=== PATIENT | male | born 1965 | race Caucasian/White ===

== ENCOUNTER 2019-08-26 14:52 | Emergency (ER) | payer OTHER ==
[~2019-08-26] VITALS: Ht 188 cm; Wt 117.9 kg
[2019-08-26 19:31] VITALS: BP 145/90
== END 2019-08-26 19:44 | disposition home or self-care (01) ==
LOC: ER 14:52
DX: S92.411A Displaced fracture of proximal phalanx of right great toe, initial encounter for closed fracture (principal); S00.91XA Abrasion of unspecified part of head, initial encounter; Z88.0 Allergy status to penicillin; W20.8XXA Other cause of strike by thrown, projected or falling object, initial encounter; Y93.89 Activity, other specified; Y99.0 Civilian activity done for income or pay; Y92.89 Other specified places as the place of occurrence of the external cause
CPT/HCPCS: 73630; 99283; L3260

== ENCOUNTER → 2023-07-29 | Outpatient (CLI) | payer OTHER ==
[2023-07-29 10:09] LABS: Basophils # (auto) 0.1 10 ^3/uL (0-0.2); Basophils % (auto) 1.2 % (0.0-2.0); Eosinophils # (auto) 0.2 10 ^3/uL (0-0.8); Eosinophils % (auto) 3.1 % (0.0-7.0); Hematocrit 47.3 % (41.0-53.0); Hemoglobin 15.9 g/dL (13.5-17.5); Lymphocytes # (auto) 1.2 10 ^3/uL (0.4-5.4); Lymphocytes % (auto) 20.5 % (10.0-50.0); Mean Corpuscular Hemoglobin 28.5 pg (28.0-32.0); Mean Corpuscular Hgb Conc. 33.6 g/dL (32.0-36.0); Mean Corpuscular Volume 84.9 fL (80.0-100.0); Monocytes # (auto) 0.3 10 ^3/uL (0-1.3); Monocytes % (auto) 5.5 % (0.0-12.0); Neutrophils % (auto) 69.7 % (37.0-80.0); Nucleated Red Blood Cells % 0.2 %; Red Blood Cells 5.58 10^6/uL (4.5-5.90); Red Cell Distribution Width 13.8 % (11.8-14.3); White Blood Cell 5.7 10^3/uL (4.4-10.8)
[2023-07-29 11:00] LABS: Urine Bacteria NONE SEEN /hpf (None Seen); Urine Blood Negative /uL (Negative); Urine Clarity HAZY (Clear); Urine Color Yellow (Yellow); Urine Mucus FEW (None Seen); Urine Protein, UAD 1+ (Negative); Urine Specific Gravity 1.031 (1.001-1.035); Urine WBC 4 /hpf (0 - 3); Urine pH 6.5 (5.0-8.0)
[2023-07-29 11:19] LABS: Alanine Aminotransferase 41 U/L (7-40); Albumin 4.5 g/dL (3.2-4.8); Alkaline Phosphatase 73 U/L (46-116); Anion Gap 8.1 (5-15); Aspartate Aminotransferase 20 U/L (13-40); Bilirubin, Total 0.8 mg/dL (0.2-1.0); Blood Urea Nitrogen 10 mg/dL (9-23); Calcium 9.2 mg/dL (8.5-10.1); Carbon Dioxide 27.9 mmol/L (20-30); Chloride 104 mmol/L (98-107); Cholesterol 143 mg/dL (< 200); Glucose 139 mg/dL (74-106); HDL Cholesterol 44 mg/dL (40-59); LDL Cholesterol 97 mg/dL (< 100); Potassium 4.1 mmol/L (3.5-5.1); Sodium 140 mmol/L (136-145); Total Protein 7.2 g/dL (5.7-8.2); Triglycerides 87 mg/dL (< 150)
== END | disposition home or self-care (01) ==
LOC: LAB 09:46
PROVIDERS: ATTEND Nurse Practitioner
DX: E11.9 Type 2 diabetes mellitus without complications (principal); I10 Essential (primary) hypertension; E78.5 Hyperlipidemia, unspecified
CPT/HCPCS: 36415; 80053; 80061; 81001; 82043; 83036; 84153; 84443; 85025

== ENCOUNTER 2024-07-30 09:00 | Inpatient (IN) | payer OTHER ==
[~2024-07-30] VITALS: Ht 188 cm; Wt 107.2 kg
[~2024-07-30 09:00] MED LIST: ATOR-507 PO; CARB25TA79 PO; FLUO-125 PO; INSU100I47 SC; LOSA-534 PO; METF-372 PO
[2024-07-30 09:52] LABS: Basophils # (auto) 0 10 ^3/uL (0-0.2); Basophils % (auto) 0.4 % (0.0-2.0); Eosinophils # (auto) 0 10 ^3/uL (0-0.8); Eosinophils % (auto) 0.1 % (0.0-7.0); Hematocrit 47.1 % (41.0-53.0); Hemoglobin 16.2 g/dL (13.5-17.5); Lymphocytes # (auto) 0.7 10 ^3/uL (0.4-5.4); Lymphocytes % (auto) 7.8 % (10.0-50.0); Mean Corpuscular Hemoglobin 29.4 pg (28.0-32.0); Mean Corpuscular Hgb Conc. 34.5 g/dL (32.0-36.0); Mean Corpuscular Volume 85.1 fL (80.0-100.0); Monocytes % (auto) 10.6 % (0.0-12.0); Neutrophils # (auto) 7.7 10 ^3/uL (1.6-8.6); Neutrophils % (auto) 81.1 % (37.0-80.0); Nucleated Red Blood Cells % 0.1 %; Platelet Count (auto) 115 10^3/uL (140-450); Red Blood Cells 5.53 10^6/uL (4.5-5.90); Red Cell Distribution Width 13.7 % (11.8-14.3); White Blood Cell 9.5 10^3/uL (4.4-10.8)
[2024-07-30 10:12] LABS: Alanine Aminotransferase 36 U/L (7-40); Albumin 4.6 g/dL (3.2-4.8); Alkaline Phosphatase 80 U/L (46-116); Anion Gap 8 (5-15); Aspartate Aminotransferase 33 U/L (13-40); BUN/Creatinine Ratio 13.2 (10.0-20.0); Blood Urea Nitrogen 14 mg/dL (9-23); Calcium 9.4 mg/dL (8.7-10.4); Carbon Dioxide 25 mmol/L (20-30); Chloride 100 mmol/L (98-107); Glucose 245 mg/dL (74-106); Potassium 3.8 mmol/L (3.5-5.1); Sodium 133 mmol/L (136-145)
[2024-07-30 10:13] LABS: Bilirubin, Total 1.3 mg/dL (0.2-1.0); Total Protein 7.7 g/dL (5.7-8.2)
[2024-07-30] MEDS: ASPirin 81 mg TAB PO ONE (11:12)
[2024-07-30] MEDS ORDERED: ACETAMINOPHEN 325 MG TAB PO PRN (12:00)
[2024-07-30] MEDS: ACCU-CHEK COMFORT CURVE STRIP VI SCH (12:00)
[2024-07-30] MEDS ORDERED: ONDANSETRON HCL 4 MG/2 ML VIAL IV PRN (12:00)
[2024-07-30] MEDS ORDERED: NITROGLYCERIN 0.4 MG SL TAB SL PRN ×2 (12:00)
[2024-07-30] MEDS ORDERED: DEXTROSE (50%) 50ML SYRG IV PRN (12:00)
[2024-07-30 12:26] LABS: INR 1.29 (0.9-1.15); Prothrombin Time 13.4 sec (9.3-11.8)
[2024-07-30 13:13] VITALS: PULSE 97; RESP 20; O2SAT 97
[2024-07-30] MEDS: cefTRIAXone 1GM/50ML D5W 50 ML IV ONE (13:55)
[2024-07-30] MEDS: InsuLIN REG 1unit/0.01ml Soln (100units/ml) SC SCH (14:02)
[2024-07-30] MEDS ORDERED: hydrALAZINE HCL 20 MG/ML VL IV PRN (14:45)
[2024-07-30] MEDS ORDERED: HYDR25TA4 PO (16:00)
[2024-07-30] MEDS: MAGNESIUM SULFATE 1GM/100ML 100 ML IV SCH (17:13)
[2024-07-30] MEDS ORDERED: MORPHINE SULFATE INJ 2 MG/ml SYRG IV PRN (18:15)
[2024-07-30 18:55] VITALS: BP 135/83; PULSE 88; RESP 21; TEMP 98.6; O2SAT 95
[2024-07-30] MEDS: HYDROcodone-ACET 5/325MG TAB PO PRN (18:57)
[2024-07-30 19:07] VITALS: O2SAT 97
[2024-07-30 20:00] VITALS: PULSE 101; PULSE 80; PULSE 93; RESP 22; O2SAT 94
[2024-07-30 21:00] VITALS: BP 141/88; PULSE 93; RESP 22; TEMP 98.5; O2SAT 94
[2024-07-30] MEDS: ATORVASTATIN 20 MG TAB PO SCH (21:41)
[2024-07-30] MEDS ORDERED: METOPROLOL TARTRATE 25 MG TAB PO SCH (22:00)
[2024-07-30] MEDS ORDERED: OMEP20TA PO (23:04)
[2024-07-30] MEDS ORDERED: ASPI1TAB20 PO (23:06)
[2024-07-30] MEDS ORDERED: FLUO20TA42 PO (23:07)
[2024-07-31 01:00] VITALS: BP 132/85; PULSE 86; RESP 20; TEMP 98.3; O2SAT 94
[2024-07-31 05:00] VITALS: BP 116/85; PULSE 76; RESP 18; TEMP 98; O2SAT 96
[2024-07-31 05:04] LABS: Basophils # (auto) 0 10 ^3/uL (0-0.2); Basophils % (auto) 0.7 % (0.0-2.0); Eosinophils # (auto) 0.1 10 ^3/uL (0-0.8); Eosinophils % (auto) 2.2 % (0.0-7.0); Hematocrit 42.8 % (41.0-53.0); Hemoglobin 15.1 g/dL (13.5-17.5); Lymphocytes # (auto) 1.2 10 ^3/uL (0.4-5.4); Lymphocytes % (auto) 18.6 % (10.0-50.0); Mean Corpuscular Hemoglobin 29.9 pg (28.0-32.0); Mean Corpuscular Hgb Conc. 35.2 g/dL (32.0-36.0); Mean Corpuscular Volume 84.9 fL (80.0-100.0); Monocytes # (auto) 0.9 10 ^3/uL (0-1.3); Monocytes % (auto) 14.1 % (0.0-12.0); Neutrophils # (auto) 4.2 10 ^3/uL (1.6-8.6); Neutrophils % (auto) 64.4 % (37.0-80.0); Nucleated Red Blood Cells % 0.1 %; Platelet Count (auto) 100 10^3/uL (140-450); Red Blood Cells 5.05 10^6/uL (4.5-5.90); Red Cell Distribution Width 13.7 % (11.8-14.3); White Blood Cell 6.5 10^3/uL (4.4-10.8)
[2024-07-31 05:51] LABS: Alanine Aminotransferase 34 U/L (7-40); Albumin 4.1 g/dL (3.2-4.8); Alkaline Phosphatase 71 U/L (46-116); Anion Gap 6 (5-15); Aspartate Aminotransferase 22 U/L (13-40); BUN/Creatinine Ratio 14.4 (10.0-20.0); Bilirubin, Total 0.9 mg/dL (0.2-1.0); Blood Urea Nitrogen 14 mg/dL (9-23); Calcium 9.2 mg/dL (8.7-10.4); Carbon Dioxide 26 mmol/L (20-30); Chloride 102 mmol/L (98-107); Cholesterol 133 mg/dL (< 200); Glucose 242 mg/dL (74-106); HDL Cholesterol 40 mg/dL (40-59); LDL Cholesterol 76 mg/dL (< 100); Potassium 3.8 mmol/L (3.5-5.1); Sodium 134 mmol/L (136-145); Total Protein 6.9 g/dL (5.7-8.2); Triglycerides 118 mg/dL (< 150)
[2024-07-31 08:03] VITALS: PULSE 97; RESP 20; O2SAT 94
[2024-07-31] MEDS: cefTRIAXone 1GM/50ML D5W 50 ML IV SCH (08:42)
[2024-07-31] MEDS: DOCUSATE SOD 100 MG CAP PO SCH (08:42)
[2024-07-31] MEDS: ASPirin 81 mg TAB PO SCH (08:43)
[2024-07-31] MEDS: LOSARTAN POTASSIUM 25 MG TAB PO SCH (08:44)
[2024-07-31 09:00] VITALS: BP 140/91; PULSE 68; RESP 16; TEMP 98.4; O2SAT 93
[2024-07-31] MEDS: hydroCHLOROthiazide 25 MG TAB PO SCH (10:00)
[2024-07-31] MEDS ORDERED: VANCOMYCIN PER PHARMACY 0 MG IV SCH (11:00)
[2024-07-31] MEDS: VANCOMYCIN 1GM/200ML 200 ML IV SCH (11:52)
[2024-07-31 12:04] VITALS: BP 135/91; PULSE 73; RESP 18; TEMP 98.4; O2SAT 93
[2024-07-31 12:12] LABS: Urine Bacteria None Seen /hpf (None Seen)
[2024-07-31] MEDS ORDERED: AUG875T PO (12:13)
[2024-07-31 12:31] LABS: Urine Blood Negative /uL (Negative); Urine Clarity Clear (Clear); Urine Color Light-Yellow (Yellow); Urine Protein, UAD Negative (Negative); Urine Specific Gravity 1.018 (1.001-1.035); Urine Urobilinogen Normal (Negative); Urine WBC 1 /hpf (0 - 3); Urine pH 5.5 (5.0-9.0)
[2024-07-31] MEDS ORDERED: ERGOCALCIFEROL 50,000 UNIT(1.25MG) CAP PO SCH (13:15)
[2024-07-31] MEDS ORDERED: ERGO1CAP23 PO (14:18)
[2024-07-31] MEDS ORDERED: VANCOMYCIN 1GM/200ML 200 ML IV SCH (22:00)
== END 2024-07-31 16:30 | disposition home or self-care (01) | DRG 603 ==
LOC: ER 09:00 → TELE 11:54 → TELE-CENTR 18:37
PROVIDERS: ADMIT Internal Medicine; ATTEND Surgery
DX: L03.116 Cellulitis of left lower limb (principal); I20.0 Unstable angina; G20.A1 Parkinson's disease without dyskinesia, without mention of fluctuations; E11.65 Type 2 diabetes mellitus with hyperglycemia; G89.4 Chronic pain syndrome; F32.A Depression, unspecified; F41.9 Anxiety disorder, unspecified; K21.9 Gastro-esophageal reflux disease without esophagitis; E66.9 Obesity, unspecified; E83.42 Hypomagnesemia; I10 Essential (primary) hypertension; E78.5 Hyperlipidemia, unspecified; L97.519 Non-pressure chronic ulcer of other part of right foot with unspecified severity; E11.621 Type 2 diabetes mellitus with foot ulcer; Z88.0 Allergy status to penicillin; Z79.899 Other long term (current) drug therapy; Z82.49 Family history of ischemic heart disease and other diseases of the circulatory system; Z63.4 Disappearance and death of family member; Z87.820 Personal history of traumatic brain injury; Z87.891 Personal history of nicotine dependence; Z68.30 Body mass index [BMI] 30.0-30.9, adult; Z79.4 Long term (current) use of insulin; Z87.828 Personal history of other (healed) physical injury and trauma
CPT/HCPCS: 36415; 71045; 80053; 80061; 81001; 82043; 82306; 82607; 82962; 83036; 83735; 84443; 84484; 85025; 85610; 86803; 87340; 93005; 93306; 93925; 93971; G0378; J1815

== ENCOUNTER 2025-07-22 13:55 | Inpatient (IN) | payer OTHER ==
[~2025-07-22] VITALS: Ht 182.9 cm; Wt 96.3 kg
[~2025-07-22 13:55] MED LIST changes: +ASPI1TAB20 PO; +AUG875T PO; -CARB25TA79 PO; +ERGO1CAP23 PO; +HYDR25TA4 PO; +OMEP20TA PO
--- NOTE | 2025-07-22 15:25 | ED.PDOC ---
History of Present Illness HPI Comments 60-year-old male presents to the ER with prior medical history of Parkinson's disease, headache, diabetes and a chief complaint of generalized weakness for three weeks. Patient reports on getting his tooth pulled out approximately one month ago and had weakness ever since. Patient's symptoms are decreased appetite, weight loss, nausea and vomiting, headache, and dizziness. Denies chills, fever, /D, SOB, CP. No other associated symptoms, modifiers, recent injuries or sick contacts present at this time. Chief Complaint: General Weakness Time Seen by MD: 15:10 Primary Care Provider: ADDISON Reviewed Notes: Nurses Notes, Medications, Allergies Allergies: Coded Allergies: Penicillins (Verified Allergy, Severe, 08/26/19) Home Meds Active Scripts Ergocalciferol (VITAMIN D 72218 UNIT) 50,000 [place], [address] UNIT PO QWEEKLY for 12 Days, #12 CAP Prov:MICK PARKER MD 07/31/24 Amoxicillin & Pot Clavulanate (AUGMENTIN TABLET) 875 Mg Tb, 875 MG PO BID for 10 Days, #20 TAB Prov:MICK PARKER MD 07/31/24 Reported Medications Aspirin (Aspir-81) 81 Mg Tab, 1 TAB PO DAILY, #30 TAB 5 Refills 07/30/24 Omeprazole (Gnp Omeprazole) 20 Mg Tab, 1 TAB PO DAILY, #90 TAB 1 Refill 07/30/24 Metformin Hydrochloride (Metformin Hcl) 1,000 Mg Tab, 1 TAB PO BID for 90 Days, #180 07/30/24 Insulin NPH (Human) (Isophane) (Novolin N Flexpen) 100 Unit/Ml Inj, 45 UNIT SC BID for 90 Days, #90 07/30/24 Fluoxetine Hcl (Fluoxetine Hcl) 20 Mg Cap, 1 TAB PO DAILY for 90 Days, #90 07/30/24 Atorvastatin Calcium (Lipitor) 40 Mg Tab, 1 TAB PO DAILY for 90 Days, #90 5 Refills 07/30/24 Hydrochlorothiazide (Hydrochlorothiazide) 25 Mg Tab, 1 TAB PO DAILY for 90 Days, #90 07/30/24 Losartan Potassium (Losartan Potassium) 50 Mg Tab, 1 TAB PO DAILY for 90 Days, #90 07/30/24 Information Source: Patient Mode of Arrival: Ambulatory Severity: Moderate Timing: Weeks Duration: Since onset Prehospital treatment: None Past Medical History PAST MEDICAL HISTORY: DM Past Medical History (Other): Parkinson's disease, headache Surgical History: Denies all surgeries Family History Family History: Reviewed,noncontributory to illness, Unknown, Family hx of heart yen Social History Smoker: Non-Smoker Alcohol: Denies ETOH Use Drugs: Denies Drug Use Lives In: Home Constitutional: denies: chills, diaphoresis, fatigue, fever, malaise, sweats, weakness, others EENTM: denies: blurred vision, double vision, ear bleeding, ear discharge, ear drainage, ear pain, ear ringing, eye pain, eye redness, hearing loss, mouth pain, mouth swelling, nasal discharge, nose bleeding, nose congestion, nose pain, photophobia, tearing, throat pain, throat swelling, voice changes, others Respiratory: denies: cough, hemoptysis, orthopnea, SOB at rest, shortness of breath, SOB with excertion, stridor, wheezing, others Cardiovascular: denies: chest pain, dizzy spells, diaphoresis, Dyspnea on exertion, edema, irregular heart beat, left arm pain, lightheadedness, palpitations, PND, syncope, others Gastrointestinal: reports: nausea, vomiting; denies: abdomen distended, abdominal pain, blood streaked bowels, constipated, diarrhea, dysphagia, difficulty swallowing, hematemesis, melena, poor appetite, poor fluid intake, rectal bleeding, rectal pain, others Genitourinary: denies: burning, dysuria, flank pain, frequency, hematuria, incontinence, penile discharge, penile sore, pain, testicle pain, testicle swelling, urgency, others Neurological: reports: dizziness, headache; denies: fainting, left sided numbness, left sided weakness, numbness, paresthesia, pre-existing deficit, right sided numbness, right sided weakness, seizure, speech problems, tingling, tremors, weakness, others Musculoskeletal: denies: back pain, gout, joint pain, joint swelling, muscle pain, muscle stiffness, neck pain, others Integumetry: denies: bruises, change in color, change in hair/nails, dryness, laceration, lesions, lumps, rash, wounds, others Allergic/Immunocompromised: denies: Difficulty Healing, Frequent Infections, Hives, Itching, others Hematologic/Lymphatic: denies: anemia, blood clots, easy bleeding, easy bruising, swollen glands, others Endocrine: reports: unexplained weight loss; denies: excessive hunger, excessive sweating, excessive thirst, excessive urination, flushing, intolerance to cold, intolerance to heat, unexplained weight gain, others Psychiatric: denies: anxiety, bipolar disorder, depression, hopeless, panic disorder, schizophrenia, sleepless, suicidal, others All Other Systems: Reviewed and Negative Physical Exam General Appearance: Moderate Distress, Normal HEENT: Normal ENT Inspection, Pharynx Normal, TMs Normal Neck: Full Range of Motion, Non-Tender, Normal, Normal Inspection Respiratory: Chest Non-Tender, Lungs Clear, No Accessory Muscle Use, No Respiratory Distress, Normal Breath Sounds Cardiovascular: No Edema, No JVD, No Murmur, No Gallop, Normal Peripheral Pulses, Regular Rate/Rhythm Breast Exam: Deferred Gastrointestinal: No Organomegaly, Non Tender, No Pulsatile Mass, Normal Bowel Sounds, Soft Genitalia: Deferred Pelvic: Deferred Rectal: Deferred Extremities: No calf tenderness, Normal capillary refill, Normal inspection, Normal range of motion, Non-tender, No pedal edema Musculoskeletal : Apperance: Normal Neurologic: Alert, home care physical therapist II-XII nml as Tested, No Motor Deficits, Normal Affect, Normal Mood, No Sensory Deficits Cerebellar Function: NOT DONE Reflexes: NOT DONE Skin: Dry, Normal Color, Warm Peripheral Pulses: 3+ Radial (R), 3+ Radial (L) Lymphatic: No Adenopathy Was a procedure done? Was a procedure done?: No Differential Dx Considerations may include: Parkinson's Electrolyte imbalance X-Ray, Labs, Meds, VS Vital Signs Date Time Temp Pulse Resp B/P (MAP) Pulse Ox O2 Delivery O2 Flow Rate FiO2 07/22/25 14:04 95 07/22/25 13:57 97.4 112 16 136/89 96 97.4 Lab Test 07/22/25 15:51 Range/Units White Blood Count 6.9 4.4-10.8 10^3/uL Red Blood Count 5.86 4.5-5.90 10^6/uL Hemoglobin 17.2 13.5-17.5 g/dL Hematocrit 49.1 41.0-53.0 % Mean Corpuscular Volume 83.8 80.0-100.0 fL Mean Corpuscular Hemoglobin 29.4 28.0-32.0 pg Mean Corpuscular Hemoglobin Concent 35.0 32.0-36.0 g/dL Red Cell Distribution Width 13.1 11.8-14.3 % Platelet Count 151 140-450 10^3/uL Mean Platelet Volume 11.0 H 6.9-10.8 fL Neutrophils (%) (Auto) 67.7 37.0-80.0 % Lymphocytes (%) (Auto) 19.9 10.0-50.0 % Monocytes (%) (Auto) 9.5 0.0-12.0 % Eosinophils (%) (Auto) 1.7 0.0-7.0 % Basophils (%) (Auto) 1.2 0.0-2.0 % Neutrophils # (Auto) 4.7 1.6-8.6 10 ^3/uL Lymphocytes # (Auto) 1.4 0.4-5.4 10 ^3/uL Monocytes # (Auto) 0.7 0-1.3 10 ^3/uL Eosinophils # (Auto) 0.1 0-0.8 10 ^3/uL Basophils # (Auto) 0.1 0-0.2 10 ^3/uL Nucleated Red Blood Cells 0.0 % Sodium Level 138 136-145 mmol/L Potassium Level 4.1 3.5-5.1 mmol/L Chloride Level 100 98-107 mmol/L Carbon Dioxide Level 29 20-31 mmol/L Anion Gap 9 5-15 Blood Urea Nitrogen 18 9-23 mg/dL Creatinine 1.20 0.700-1.30 mg/dL Glomerular Filtration Rate Calc 68 >90 mL/min BUN/Creatinine Ratio 15.0 10.0-20.0 Serum Glucose 232 H 74-106 mg/dL Calcium Level 10.1 8.7-10.4 mg/dL Troponin I High Sensitivity < 3 L </=54 ng/L Patient alert. History of Parkinson's. WBC within normal limits. Hemoglobin within normal limits. He is ambulating. Continues to have migraine along with generalized body pains. CT of the head reviewed does not show any acute changes. Cardiac marker within normal limits. Establish intravenous access. Was given fluids. Continue monitoring. Time of 1ST Reevaluation: 15:40 Reevaluation 1ST: Unchanged Patient Education/Counseling: Diagnosis, Treatment, Prognosis Family Education/Counseling: No Family Present SEPSIS Sepsis Screen Date sepsis recognized/suspect: Jul 22, 2025 Time Sepsis recognized/suspect: 1357 Recent Procedure: No On Antibiotic Therapy: No Respiratory Rate >20: No Heart Rate >90: Yes Temp<36 C (96.8 F) or >38.3 C: No SBP <90 or MAP <65 mmHG: No New Acute Mental Status Change: No Is the patient on CPAP, BIPAP,: No Physician Orders Electrocardigram (07/22/25 14:06) Head Without Contrast (07/22/25 15:34) Chest Portable (07/22/25 15:34) Urinalysis (07/22/25 15:34) Sodium Chloride 0.9% (07/22/25 15:45) Vital Signs Date Time Temp Pulse Resp B/P (MAP) Pulse Ox O2 Delivery O2 Flow Rate FiO2 07/22/25 14:04 95 07/22/25 13:57 97.4 112 16 136/89 96 97.4 Laboratory Tests Test 07/22/25 15:51 White Blood Count 6.9 10^3/uL (4.4-10.8) Departure 1 Departure Time of Disposition: 16:46 Impression: Primary Impression: Uncontrolled diabetes mellitus Qualified Codes: E13.65 - Other specified diabetes mellitus with hyperglycemia Additional Impressions: Migraine Qualified Codes: G43.909 - Migraine, unspecified, not intractable, without status migrainosus Parkinsons Qualified Codes: G20.A1 - Parkinson's disease without dyskinesia, without mention of fluctuations Disposition: 09 ADMITTED INPATIENT Admit to: Med Surg Condition: Guarded Critical Care Note Critical Care Time?: No Stability Stability form required: No Heart Score Heart Score: Heart Score Response (Comments) Value History N/A 0 EKG N/A 0 Age N/A 0 Risk Factors N/A 0 Troponin N/A 0 Total 0 I personally scribed for NADIRA DELEON MD ([email or web address]) on 07/22/25 at 15:25. Electronically submitted by Pavan Navas ([email or web address]). NADIRA DELEON MD Jul 22, 2025 15:25
--- NOTE | 2025-07-22 16:06 | DVH ---
CHEST RADIOGRAPH Indication: sob Technique: Single frontal view of the chest was obtained Comparison: XY CHEST PORTABLE on DOS: 07/30/24 FINDINGS: Lines and Tubes: None Lungs: No focal consolidation. Pleura: No effusion. No pneumothorax. Cardiomediastinal contours: Unremarkable Bones: No acute osseous abnormality. IMPRESSION: 1. No acute cardiopulmonary disease.
[2025-07-22 16:12] LABS: Hematocrit 49.1 % (41.0-53.0); Hemoglobin 17.2 g/dL (13.5-17.5); Mean Corpuscular Hemoglobin 29.4 pg (28.0-32.0); Mean Corpuscular Volume 83.8 fL (80.0-100.0); Nucleated Red Blood Cells % 0.0 %
[2025-07-22 16:19] LABS: Chloride 100 mmol/L (98-107); Potassium 4.1 mmol/L (3.5-5.1); Sodium 138 mmol/L (136-145)
[2025-07-22 16:20] LABS: Anion Gap 9 (5-15); Carbon Dioxide 29 mmol/L (20-31)
[2025-07-22 16:21] LABS: Calcium 10.1 mg/dL (8.7-10.4)
[2025-07-22 16:25] LABS: BUN/Creatinine Ratio 15.0 (10.0-20.0); Blood Urea Nitrogen 18 mg/dL (9-23)
[2025-07-22 16:26] LABS: Glucose 232 mg/dL (74-106)
--- NOTE | 2025-07-22 16:33 | DVH ---
Exam: CT HEAD WITHOUT CONTRAST History: migrane Technique: [address] images through the posterior fossa and the supratentorial compart ment were acquired without contrast and imaged using soft tissue and bone algorithms. RADIATION DOSE: DLP 953.37 mGy.cm; CTDI vol 59.48 mGy. Comparison: None Findings: There is no evidence of an intracranial hemorrhage, acute large vessel infarct, mass effect, or midli ne shift. There is no significant cerebral atrophy. Right frontal and temporal lobe encephalomalacia. Left fron matthias subcortical hypoattenuation. Mild calcification of the carotid siphons. The calvarium, orbits, paranasal sinuses, sella, middle ears, and mastoids are unremarkable. The superficial soft tissues are within normal limits. Impression: 1. No acute intracranial abnormality. 2. If symptoms persist or worsen, recommend MRI for further evaluation.
--- NOTE | 2025-07-22 18:46 | ECG ---
[facility] Test Date: 2025-07-22 Test Time: 14:02:29 Pat Name: SULY RICHMOND Department: ED Room: [address] Gender: M Futures Trader: MARCELLA : 1965 Requested By: EMERGENCY EMERGENCY Order Number: [id number] Reading MD: Bryan Carrington Measurements Intervals [place] Rate: 95 P: 34 ID: [id number] QRS: -64 QRSD: 91 T: 21 QT: 351 QTc: 442 Interpretive Statements Sinus rhythm Probable left atrial enlargement Abnormal R-wave progression, late transition Inferior infarct, old Electronically Signed On 07-27-2025 14:22:52 PDT by Bryan Carrington Please click the below link to view image of tracing.
[2025-07-22] MEDS: SODIUM CHLORIDE 0.9% 1,000 ML IV ONE ×2 (19:43→20:30)
[2025-07-22 20:20] VITALS: O2SAT 97
[2025-07-22 21:56] LABS: Urine Protein, UAD TRACE (Negative)
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
[2025-07-22] MEDS ORDERED: DEXTROSE (50%) 50ML SYRG IV PRN (23:30)
[2025-07-22 23:59] VITALS: BP 138/75; PULSE 65; RESP 17; RESP 18; TEMP 98.2; O2SAT 97
[2025-07-23] MEDS: NAPROXEN 500 MG TAB PO ONE (00:25)
[2025-07-23] MEDS ORDERED: HYDR-4902 PO (00:37)
[2025-07-23] MEDS ORDERED: MELO7.5T7 PO (00:37)
[2025-07-23] MEDS ORDERED: CARB25TA79 PO (00:37)
[2025-07-23 05:00] VITALS: BP 107/76; PULSE 64; RESP 18; TEMP 98.7; O2SAT 97
[2025-07-23 05:56] LABS: Hematocrit 44.5 % (41.0-53.0); Hemoglobin 15.8 g/dL (13.5-17.5); Mean Corpuscular Hemoglobin 29.7 pg (28.0-32.0); Mean Corpuscular Volume 83.8 fL (80.0-100.0); Nucleated Red Blood Cells % 0.1 %
[2025-07-23 06:00] LABS: Alanine Aminotransferase 27 U/L (7-40); Albumin 4.1 g/dL (3.2-4.8); Alkaline Phosphatase 71 U/L (46-116); Anion Gap 11 (5-15); BUN/Creatinine Ratio 14.3 (10.0-20.0); Blood Urea Nitrogen 14 mg/dL (9-23); Calcium 9.2 mg/dL (8.7-10.4); Carbon Dioxide 24 mmol/L (20-31); Chloride 103 mmol/L (98-107); Potassium 3.5 mmol/L (3.5-5.1); Sodium 138 mmol/L (136-145); Total Protein 6.6 g/dL (5.7-8.2)
[2025-07-23 06:01] LABS: Bilirubin, Total 1.0 mg/dL (0.2-1.0)
[2025-07-23 06:07] LABS: Glucose 208 mg/dL (74-106)
[2025-07-23] MEDS: ACCU-CHEK COMFORT CURVE STRIP VI SCH ×2 (06:28→17:00)
[2025-07-23] MEDS: InsuLIN REG 1unit/0.01ml Soln (100units/ml) SC SCH ×2 (06:33→07:14)
[2025-07-23] MEDS ORDERED: DEXTROSE (50%) 50ML SYRG IV PRN ×2 (07:00→12:00)
[2025-07-23] MEDS ORDERED: ACCU-CHEK COMFORT CURVE STRIP VI SCH (07:00)
[2025-07-23 09:00] VITALS: BP 128/86; PULSE 78; RESP 18; TEMP 98.3; O2SAT 95
[2025-07-23] MEDS: ONDANSETRON HCL 4 MG/2 ML VIAL IV PRN (11:22)
[2025-07-23] MEDS: ACETAMINOPHEN 325 MG TAB PO PRN (11:22)
[2025-07-23 13:00] VITALS: BP 117/71; PULSE 77; RESP 18; TEMP 98.6; O2SAT 96
[2025-07-23 13:11] LABS: Amphetamine Screen, Urine Neg (NEGATIVE); Barbiturate Scree,Urine Neg (NEGATIVE); Benzodiazephine Screen, Urine Neg (NEGATIVE); Cannabinoid Screen, Urine Neg (NEGATIVE); Cocaine Screen, Urine Neg (NEGATIVE); Opiate Scree,Urine Neg (NEGATIVE); Phencyclidine Screen, Urine Neg (NEGATIVE)
[2025-07-23] MEDS: MAALOX PLUS or MAALOX 30 ML PO SCH (14:51)
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
[2025-07-23] MEDS: PANTOPRAZOLE 40 MG TAB PO ONE (15:10)
[2025-07-23 17:00] VITALS: BP 128/92; PULSE 91; RESP 18; TEMP 98.7; O2SAT 96
[2025-07-23] MEDS: INSULIN LISPRO (HUMAN) 100 UNITS/ML ML SC SCH (17:00)
[2025-07-23] MEDS ORDERED: InsuLIN REG 1unit/0.01ml Soln (100units/ml) SC SCH ×3 (17:00→22:00)
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
[2025-07-23] MEDS ORDERED: INSULIN LANTUS (GLARGINE) 1 /0.01ml (100units/ml) SC SCH (22:00)
== END 2025-07-23 22:32 | disposition left against medical advice (07) | DRG 103 ==
LOC: ER 13:55 → OVERFLOW 22:36
PROVIDERS: ADMIT Student in an Organized Health Care Education/Training Program; ATTEND Student in an Organized Health Care Education/Training Program
DX: G43.109 Migraine with aura, not intractable, without status migrainosus (principal); G20.A1 Parkinson's disease without dyskinesia, without mention of fluctuations; F17.200 Nicotine dependence, unspecified, uncomplicated; G44.40 Drug-induced headache, not elsewhere classified, not intractable; G25.0 Essential tremor; F41.9 Anxiety disorder, unspecified; E78.5 Hyperlipidemia, unspecified; E11.8 Type 2 diabetes mellitus with unspecified complications; Z53.29 Procedure and treatment not carried out because of patient's decision for other reasons; Z79.899 Other long term (current) drug therapy; Z79.4 Long term (current) use of insulin; Z82.49 Family history of ischemic heart disease and other diseases of the circulatory system; Z87.820 Personal history of traumatic brain injury; Z87.828 Personal history of other (healed) physical injury and trauma; Z88.0 Allergy status to penicillin; Z93.0 Tracheostomy status; Z93.1 Gastrostomy status; Z80.9 Family history of malignant neoplasm, unspecified
CPT/HCPCS: 36415; 70450; 71045; 80048; 80053; 80307; 81001; 82962; 83036; 84484; 85025; 93005; 96360; G0378; J1815; J2405